=== PATIENT | male | born 2000 | race Caucasian/White ===

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

== ENCOUNTER 2018-04-30 20:14 | Emergency (ER) | payer OTHER ==
[2018-04-30 21:03] VITALS: BP 128/76
--- NOTE | 2018-04-30 22:37 | ER Document Report ---
ED General - General Chief Complaint: Skin Problem Stated Complaint: REDNESS IN GROIN Time Seen by Provider: 04/30/18 22:22 Notes: Patient is a 18-year-old male who presents with complaint of a few small red spots on his penile shaft. No open sores. No pain. No itching. No abnormal drainage from his penis. No other complaints at this time. TRAVEL OUTSIDE OF THE [place] IN LAST 30 DAYS: No - Related Data Allergies/Adverse Reactions: No Known Allergies Allergy (Verified 12/11/17 13:01) Past Medical History - Social History Smoking Status: Never Smoker Frequency of alcohol use: None Drug Abuse: None Family History: Reviewed & Not Pertinent Pulmonary Medical History: Reports: Hx Asthma - childhood Renal/ Medical History: Denies: Hx Peritoneal Dialysis Past Surgical History: Reports: Hx Tonsillectomy Review of Systems - Review of Systems Notes: My Normal Review Basic REVIEW OF SYSTEMS: CONSTITUTIONAL : Denies fever, chills, or sweats. Denies recent illness. Well-appearing. GASTROINTESTINAL: Denies abdominal pain. GENITOURINARY: Denies difficulty urinating, painful urination, burning, frequency, or blood in urine. SKIN: Lesions on penis. ALL OTHER SYSTEMS REVIEWED AND NEGATIVE. Physical Exam - Vital signs Vitals: Temp Pulse Resp BP Pulse Ox 99.1 F 78 16 128/76 H 99 04/30/18 20:59 04/30/18 20:59 04/30/18 20:59 04/30/18 20:59 04/30/18 20:59 - Notes Notes: General Appearance: Well nourished, alert, cooperative, no acute distress, no obvious discomfort. Vitals: reviewed, See vital signs table. Genital: No abnormal drainage from penis. Patient has 3 small red dots right along the border of the patient's penile shaft and glans. There is no lesions on the glans itself. Consistent with most likely was to be inflamed skin glands on the penile shaft. They are not excoriated. They are not painful. They are not itching. There is no drainage from them. Neuro: speech clear, oriented x 3, normal affect, responds appropriately to questions. Course - Re-evaluation Re-evalutation: 05/01/18 06:32 I informed the patient that the looks more consistent with inflamed skin glands on the penis. Informed him that he should follow-up with primary care doctor or fur finisher or a physician in 1 week for reevaluation to make sure there are not become excoriated. I told him at this time I think it is unlikely is herpetic that there is no excoriations or pain however sometimes herpes can start as just small red bumps and then become excoriated and painful. That is why he must have these reevaluated in 1 week. They do not look consistent with that of genital warts. Patient does not have sex for 1 week until reevaluated by physician. Patient agrees with plan will be discharged home. Dictation of this chart was performed using voice recognition software; therefore, there may be some unintended grammatical errors. - Vital Signs Vital signs: Temp Pulse Resp BP Pulse Ox 99.1 F 78 16 128/76 H 99 04/30/18 20:59 04/30/18 20:59 04/30/18 20:59 04/30/18 20:59 04/30/18 20:59 Discharge - Discharge Clinical Impression: Skin lesion Condition: Good Disposition: HOME, SELF-CARE Additional Instructions: Please follow up with a doctor in 1 week for revaluation of the lesions to see if they are progressing. At this time it is difficult to tell if the red luu are just engorged sweat glands or potentially early herpes lesions. If they are herpes they will eventually become painful and typically will excoriate. Please no sexual activity until reassessed in one week. return to the ER immediately if you have enlargement of the lesions, fevers, formation of open sores, or have any further concerns.
== END 2018-04-30 22:35 | disposition home or self-care (01) ==
LOC: ER 20:14
DX: L98.9 Disorder of the skin and subcutaneous tissue, unspecified (principal)
CPT/HCPCS: 99283